=== PATIENT | male | born 1950 | race Caucasian/White ===

== ENCOUNTER 2017-03-03 12:38 | Emergency (ER) | payer OTHER ==
[2017-03-03 12:59] VITALS: BP 139/80
--- NOTE | 2017-03-03 13:12 | UC ---
Laceration HPI - History Of Current Complaint Chief Complaint: UCLaceration Stated Complaint: HEAD LAC Time Seen by Provider: 03/03/17 13:12 - Allergies/Home Medications Allergies/Adverse Reactions: Allergies Allergy/AdvReac Type Severity Reaction Status Date / Time No Known Allergies Allergy Verified 03/03/17 12:59 PMH/Surg Hx/FS Hx/Imm Hx - Surgical History Surgical History: None Surgery Procedure, Year, and Place: shoulder- 5 years ago - Social History Alcohol Use: Daily Alcohol Amount: 2/day Substance Use Type: None Smoking Status (MU): Never Smoked Tobacco - Immunization History Most Recent Influenza Vaccination: 2016 Most Recent Tetanus Shot: unknown Physical Exam Vital Signs: Initial Vital Signs Temp 97.6 F 03/03/17 12:53 Pulse 84 03/03/17 12:53 Resp 16 03/03/17 12:53 BP 139/80 03/03/17 12:53 Pulse Ox 98 03/03/17 12:53 Discharge - Discharge Plan Referrals: Kade Pierce MD [Primary Care Provider] -
[2017-03-03] MEDS ORDERED: Lidocaine/Epineph/Tetraca SOL* (LET solution) 4 ML BTL ONE (13:15)
[2017-03-03] MEDS ORDERED: Lidocaine/Epineph/Tetraca SOL* (LET solution) 4 ML BTL TOPICAL ONE (13:17)
--- NOTE | 2017-03-03 13:40 | ED ---
Head Injury - HPI Summary HPI Summary: Pt here w/ head injury prior to arrival. Was digging a hole with a registered nurse post partum when part of the tool struck him on top of the head. Had aburpt neck pain at time of injury but none since. Denies LOC and no URIBE, visual change, N/V , dental pain, numbness, tingling, weakness, syncope. Has had some oozing of blood from the site since. Pain is focal to wound on scalp - has a lac here. Imms are ? - History Of Current Complaint Chief Complaint: UCLaceration Stated Complaint: HEAD LAC Time Seen by Provider: 03/03/17 13:12 Hx Obtained From: Patient, Family/Sewer Digger - - Allergies/Home Medications Allergies/Adverse Reactions: Allergies Allergy/AdvReac Type Severity Reaction Status Date / Time No Known Allergies Allergy Verified 03/03/17 12:59 PMH/Surg Hx/FS Hx/Imm Hx Previously Healthy: Yes Endocrine/Hematology History: Reports: Hx Thyroid Disease - on med Denies: Hx Anticoagulant Therapy, Hx Blood Disorders Cardiovascular History: Reports: Hx Hypercholesterolemia - on meds - Surgical History Surgery Procedure, Year, and Place: shoulder- 5 years ago - Immunization History Immunizations Up to Date: Unable to Obtain/Confirm Infectious Disease History: No Infectious Disease History: Denies: Traveled Outside the [place] in Last 30 Days - Family History Known Family History: Positive: None - Social History Occupation: Retired Lives: With Family Alcohol Use: Daily Alcohol Amount: 2/day Hx Substance Use: No Substance Use Type: Reports: None Hx Tobacco Use: No Smoking Status (MU): Never Smoked Tobacco Review of Systems Constitutional: Negative Negative: Fatigue Eyes: Negative Negative: Photophobia, Blurred Vision, Diplopia ENT: Negative Negative: Dental Pain Gastrointestinal: Negative Negative: Vomiting, Nausea Positive: no symptoms reported Musculoskeletal: Negative Negative: Arthralgia, Myalgia, Decreased ROM Skin: Other - lac Neurological: Negative Psychological: Normal All Other Systems Reviewed And Are Negative: Yes Physical Exam Triage Information Reviewed: Yes Vital Signs On Initial Exam: Initial Vitals Temp Pulse Resp BP Pulse Ox 97.6 F 84 16 139/80 98 03/03/17 12:53 03/03/17 12:53 03/03/17 12:53 03/03/17 12:53 03/03/17 12:53 Vital Signs Reviewed: Yes Appearance: Positive: Well-Appearing, No Pain Distress, Well-Nourished Skin: Positive: Warm - linear lac over midline superior scalp from A to P - oozing blood - no kashif edema or laxity observed Head/Face: Negative: TMJ Tenderness Eyes: Positive: Normal, EOMI, QUE - no photophobia, Conjunctiva Clear ENT: Positive: Hearing grossly normal, Pharynx normal - no signs of trauma, TMs normal - no hemotympanum. Negative: Nasal drainage Dental: Negative: Dental Fracture @ Neck: Positive: Supple, Nontender - FROM w/o pain or restriction Respiratory/Lung Sounds: Positive: Clear to Auscultation, Breath Sounds Present Cardiovascular: Positive: Normal, RRR Musculoskeletal: Positive: Normal, Strength/ROM Intact Neurological: Positive: Normal, Sensory/Motor Intact, Alert, Oriented to Person Place, Time, CN Intact II-III, Facial Symmetry, Speech Normal Psychiatric: Positive: Normal Procedures - Laceration/Wound Repair 1 Location: head Description: Linear Anesthesia: Local, Lido, Epi Length, Depth and Shape: 4cm x 2mm Betadine Prep?: No - hibaclens solution irrigation Irrigated w/ Saline (ccs): 50 Laceration/Wound Explored: clean Closure: Marcos #__ - 3 Layer Closure?: No Sterile Dressing Applied?: Yes - triple anbx ointment - pt tolerated well Diagnostics - Vital Signs Vital Signs Temp Pulse Resp BP Pulse Ox 03/03/17 12:53 97.6 F 84 16 139/80 98 - Laboratory Lab Statement: Any lab studies that have been ordered have been reviewed, and results considered in the medical decision making process. Head Injury Course/Dx Course Of Treatment: Pt here w/ head injury to superior scalp prior to arrival. Denies LOC and current neck pain - no neuro deficits. Lac repaired and pt advised on wound care as well as f/u for staple removal. Discussed danger s/sx of when to return to ED. Pt and agree w/ plan. - Diagnoses Provider Diagnoses: Head injury, Scalp laceration Discharge - Discharge Plan Condition: Stable Disposition: HOME Patient Education Materials: Laceration (ED), Head Injury (ED), Staple Care (ED ) Referrals: Kade Pierce MD [Primary Care Provider] - Additional Instructions: Rest, ice for pain and swelling - you may also take ibuprofen with food Keep wound clean by washing daily with soap and water - rinse well and pat dry with clean cloth then reapply triple antibiotic ointment Follow-up with PCP in 7-10 days for wound check and staple removal. Call today to schedule appointment *If in the meantime you develop redness, swelling, purulent drainage, fever, chills or neurological deficits (ie. change in vision, headache, numbness, tingling, weakness, fatigue, etc) , go to the ED
[2017-03-03] MEDS ORDERED: Tetan/Diph/Pertus SYR(Tdap)* 0.5 ML SYR(BOOSTRIX) use SYR IM ONE ×2 (13:59→14:02)
== END 2017-03-03 14:12 | disposition home or self-care (01) ==
LOC: UCEAST 12:38
DX: S01.01XA Laceration without foreign body of scalp, initial encounter (principal); S09.90XA Unspecified injury of head, initial encounter; W22.8XXA Striking against or struck by other objects, initial encounter; Y92.9 Unspecified place or not applicable; E07.9 Disorder of thyroid, unspecified; E78.00 Pure hypercholesterolemia, unspecified
CPT/HCPCS: 12002; 90715; 99211; G0463

== ENCOUNTER → 2019-01-07 12:51 | Day surgery (SDC) | payer MEDICARE ==
[~2019-01-07 12:51] MED LIST: Buffered Lidocaine 1% SYRIN* 1 ML/SYRINGE INTRADERM ONE; Bupivacaine 0.25% SDV PF* 10 ML VIAL INJ ONE; Dexamethasone IV* 4 MG/ML 1 ML (4 MG) ONE; Famotidine IV* 10 MG/ML 2 ML (20 mg) IV ONE; Famotidine IV* 10 MG/ML 2 ML (20 mg) ONE; KETAMINE HCL* 50 MG/ML 10 ML VIAL ONE; Lactated Ringers 1000 ML Bag* 1,000 ML IV SCH; Lidocaine 1% w EPI 1:100,000* MDV 20 ML VIAL ONE; Lidocaine 2% PF * 5 ML VIAL ONE; Midazolam* 1 MG/ML 10 ML VIAL (10 MG) ONE; Naloxone* 0.4 MG/ML 1 ML VIAL IV PRN; Ondansetron INJ* 2 MG/ML VIAL IV PRN; Ondansetron INJ* 2 MG/ML VIAL ONE; Propofol* 10 MG/ML 20 ML BTL ONE; ceFAZolin 2 GM PREMIX in ORs 2 GM/50 ML BAG ONE; fentaNYL* 50 MCG/ML 2 ML VIAL (100 MCG VIAL) IV PRN; fentaNYL* 50 MCG/ML 2 ML VIAL (100 MCG VIAL) ONE; oxyCODONE/Acetamin 5/325 MG* TAB PO PRN
[2019-01-07 17:58] VITALS: BP 110/64
== END | disposition home or self-care (01) ==
LOC: OR 12:51
PROVIDERS: ATTEND Plastic Surgery
DX: D17.1 Benign lipomatous neoplasm of skin and subcutaneous tissue of trunk (principal); K21.9 Gastro-esophageal reflux disease without esophagitis; E03.9 Hypothyroidism, unspecified; M54.6 Pain in thoracic spine; M54.12 Radiculopathy, cervical region; E78.5 Hyperlipidemia, unspecified; Z87.891 Personal history of nicotine dependence
CPT/HCPCS: 88304; J0690; J1100; J2250; J2405; J2704; J3010; J3490